=== PATIENT | male | born 1980 | race Caucasian/White ===

== ENCOUNTER 2017-05-29 18:26 | Emergency (ER) | payer OTHER ==
--- NOTE | 2017-05-29 20:17 | EDPHY ---
HPI/HX/ROS/PE/MDM Narrative: CC: Med refill HPI: Patient presents to the ED for request for a 7 day refill of his Antabuse , which he ran out of. He is visiting from [place] and will return home in one week. He denies any other complaint or request. PMH: Alcohol abuse. Physical Exam: Gen: Alert, comfortable, no distress. Patient declines any further exam. MDM: Patient will be provided with a one week refill of his medication. I see no signs of a medical emergency. General Time Seen by Provider: 05/29/17 19:49 Initial Vital Signs: Initial Vital Signs Temperature (C) 36.3 C 05/29/17 18:42 Heart Rate 63 05/29/17 18:42 Respiratory Rate 15 05/29/17 18:42 Blood Pressure 119/84 H 05/29/17 18:42 O2 Sat (%) 93 05/29/17 18:42 O2 Delivery Mode Room Air Allergies/Adverse Reactions: No Known Allergies Allergy (Unverified 05/29/17 18:41) Home Medications: Medication Instructions Recorded ANTABUSE 05/29/17 Disulfiram [Antabuse 250 MG (*)] 250 mg PO DAILY #7 tab 05/29/17 Departure - Departure Disposition: Home, Routine, Self-Care Clinical Impression: Medication refill Condition: Good Instructions: Medicine Refill (ED) Referrals: NONE *PRIMARY CARE P,. [Primary Care Provider] - As per Instructions Prescriptions: Disulfiram [Antabuse 250 MG (*)] 250 mg PO DAILY #7 tab
[2017-05-29 20:44] VITALS: BP 135/65; PULSE 65; RESP 18; TEMP 98.1; O2SAT 95
== END 2017-05-29 20:33 | disposition home or self-care (01) ==
DX: Z76.0 Encounter for issue of repeat prescription (principal)